=== PATIENT | female | born 1965 | race Caucasian/White ===

== ENCOUNTER 2018-11-29 18:43 | Inpatient (IN) | payer OTHER ==
[~2018-11-29] VITALS: Ht 160 cm; Wt 102.7 kg
--- NOTE | 2018-11-29 19:57 | NUR ---
PT PRESENTED TO THE ER WITH A C/O ABD PAIN. PT'S ABD IS HARD AND DISTENDED. PT WAS DX WITH A UTI A FEW DAYS AGO AT [facility], PER PT'S AUNT. PT WAS RECENTLY DX WITH LIVER CIROSIS.
[2018-11-29] MEDS ORDERED: ONDANSETRON HCL/PF 4 MG/2 ML VIAL ONE (20:28)
[2018-11-29] MEDS ORDERED: MORPHINE SULFATE INJ 4 MG/ML DISP.SYRIN ONE (20:28)
[2018-11-29] MEDS ORDERED: ONDANSETRON HCL/PF 4 MG/2 ML VIAL IVP ONE (20:30)
[2018-11-29] MEDS ORDERED: MORPHINE SULFATE INJ 2 MG/ML DISP.SYRIN IV ONE (20:30)
[2018-11-29] MEDS ORDERED: IV NS 0.9% 500 ML BAG IV ONE (20:30)
[2018-11-29 20:42] LABS: BASOPHILS % (AUTO) 0.5 % (0.0-2.0); EOSINOPHILS % (AUTO) 2.8 % (0.0-6.0); HEMATOCRIT 32 % (33-45); HEMOGLOBIN 9.9 g/dL (11.5-14.8); LYMPHOCYTES # (AUTO) 1.2 /CMM (0.8-4.8); LYMPHOCYTES % (AUTO) 17.7 % (20.0-44.0); MEAN CORPUSCULAR HGB CONC 31 g/dl (31.0-36.0); MEAN CORPUSCULAR VOLUME 80 fL (82-100); MONOCYTES # (AUTO) 0.8 /CMM (0.1-1.30); MONOCYTES % (AUTO) 12.9 % (2.0-12.0); NEUTROPHILS # (AUTO) 4.4 /CMM (1.8-8.9); NEUTROPHILS % (AUTO) 66.1 % (43.0-81.0); PLATELET COUNT (AUTO) 72 /CMM (150-450); RED BLOOD CELL COUNT(AUTO) 3.97 MIL/uL (4.0-5.2); WHITE BLOOD COUNT (AUTO) 6.6 K/uL (4.3-11.0)
[2018-11-29 20:50] LABS: CALCIUM, SERUM 8.3 mg/dL (8.5-10.1); CARBON DIOXIDE 28 mmol/L (21-32); CHLORIDE 103 mmol/L (98-107); CREATININE 1.2 mg/dL (0.6-1.3); GLUCOSE 96 mg/dL (74-106); POTASSIUM 3.1 mmol/L (3.5-5.1); SODIUM SERUM 137 mmol/L (136-145); UREA NITROGEN, BLOOD 9 mg/dL (7-18)
[2018-11-29 20:54] LABS: SERUM AMMONIA 23 umol/L (11-32)
[2018-11-29 20:56] LABS: ALANINE AMINOTRANSFERASE 41 U/L (12-78); ALBUMIN 2.4 g/dL (3.4-5.0); ALKALINE PHOSPHATASE 68 U/L (46-116); ASPARTATE AMINOTRANSFERASE 46 U/L (15-37); BILIRUBIN,DIRECT 0.7 mg/dL (0.0-0.2); BILIRUBIN,TOTAL 1.5 mg/dL (0.2-1.0); LIPASE 756 U/L (73-393); TOTAL PROTEIN, SERUM 7.2 g/dL (6.4-8.2)
[2018-11-29 21:45] LABS: APPEARANCE,URINE Slightly Cloudy (CLEAR); BILIRUBIN,URINE Negative (NEGATIVE); BLOOD, URINE Trace-lysed Ery/uL (NEGATIVE); COLOR,URINE Yellow (YELLOW); KETONES,URINE Negative (NEGATIVE); LEUKOCYTE ESTERASE ,URINE Negative (NEGATIVE); NITRITE, URINE Negative (NEGATIVE); PH,URINE 7.5 (5.0-8.0); PROTEIN,URINE Negative (NEGATIVE); UGLUCOSE Negative (NEGATIVE); UROBILINOGEN,URINE 0.2 EU/dL (0.2)
[2018-11-29 21:55] LABS: BACTERIA,URINE None seen /HPF (None Seen); SQUAMOUS EPITHELIAL CELL,UR Moderate /HPF (None Seen); WBC,URINE 0-2 /HPF (0-3)
--- NOTE | 2018-11-29 21:55 | NUR ---
PT STATED THAT SHE FELT BETTER.
--- NOTE | 2018-11-29 22:00 | NUR ---
PT LEFT FOR CT.
--- NOTE | 2018-11-29 22:03 | NUR ---
PT IS GOING TO 314-2
--- NOTE | 2018-11-29 22:03 | NUR ---
ADMIT TO 314-2 MED SURG PANCREATITIS ACCEPTING EZEQUIEL GUERRERO NP
[2018-11-29 22:13] LABS: EOSINOPHILS % (MANUAL) 3 % (0-4); LYMPHOCYTES % (MANUAL) 19 % (16-48); MONOCYTES % (MANUAL) 9 % (0-11.0); NEUTROPHILS % (MANUAL) 69 (42-76)
--- NOTE | 2018-11-29 22:44 | NUR ---
REPORT TO ORION MABRY
[2018-11-29 23:00] VITALS: BP 171/99
--- NOTE | 2018-11-29 23:00 | NUR ---
RN MS ADMISSION NOTE RECEIVED PT FROM ER VIA TAMI, PT AWAKE, ALERT ORIENTEDX4. BREATHING EVEN AND UNLABORED ON ROOM AIR. COMPLAINS OF SHARP ABDOMINAL PAIN 08/11. IV ACCESS ON THE R WRIST #24GWITH D5 NS@60ML/ML. SKIN INTACT. BED IN LOWEST LOCKED POSITION, CALL LIGHT WITHIN REACH AT ALL TIMES, WILL CONTINUE TO MONITOR.
[2018-11-29] MEDS ORDERED: Z GUARD REMEDY 2 OZ OINT TP PRN (23:30)
[2018-11-29] MEDS ORDERED: ZOLPIDEM TARTRATE 5 MG TABLET PO PRN (23:30)
[2018-11-29] MEDS ORDERED: IV D5/ 0.9% NACL 1,000 ML IV PRN (23:30)
[2018-11-29] MEDS ORDERED: ONDANSETRON HCL/PF 4 MG/2 ML VIAL IVP PRN (23:30)
[2018-11-29] MEDS ORDERED: MAGNESIUM HYDROXIDE 30 ML UDC PO PRN (23:30)
[2018-11-30] MEDS: HYDROMORPHONE 1 MG/1 ML DISP.SYRIN IV PRN ×2 (01:16→20:01)
[2018-11-30 03:04] VITALS: BP 171/99
[2018-11-30] MEDS ORDERED: FUROSEMIDE 40 MG/4 ML VIAL IV SCH (04:30)
[2018-11-30] MEDS ORDERED: Potassium Chloride 10 MEQ, LIDOCAINE HCL/PF 1% 1 ML in IV D5W 50 ML IV SCH (04:30)
[2018-11-30] MEDS: POTASSIUM CL. PREMIX PERIPHER. 50 ML IV SCH ×2 (05:52→06:34)
--- NOTE | 2018-11-30 06:37 | NUR ---
RN MS CLOSING NOTES PT REMAINS IN BED, AWAKE, ALERT ORIENTEDX4. BREATHING EVEN AND UNLABORED ON ROOM AIR. NO COMPLAINT OF PAIN OR DISCOMFORT AT THIS TIME. IV ACCESS ON THE R WRIST #24GWITH D5 NS@60ML/ML. SKIN INTACT. ALL NEEDS ATTENDED TO. BED IN LOWEST LOCKED POSITION, CALL LIGHT WITHIN REACH AT ALL TIMES, WILL ENDORSE TO DAY NURSE FOR BC.
[2018-11-30 06:55] LABS: BASOPHILS # (AUTO) 0.1 /CMM (0.0-0.2); BASOPHILS % (AUTO) 0.8 % (0.0-2.0); EOSINOPHILS % (AUTO) 4.6 % (0.0-6.0); HEMATOCRIT 33 % (33-45); HEMOGLOBIN 10.4 g/dL (11.5-14.8); LYMPHOCYTES # (AUTO) 1.4 /CMM (0.8-4.8); LYMPHOCYTES % (AUTO) 20.1 % (20.0-44.0); MEAN CORPUSCULAR HGB CONC 31 g/dl (31.0-36.0); MEAN CORPUSCULAR VOLUME 80 fL (82-100); MONOCYTES # (AUTO) 0.9 /CMM (0.1-1.30); MONOCYTES % (AUTO) 13.5 % (2.0-12.0); NEUTROPHILS # (AUTO) 4.1 /CMM (1.8-8.9); PLATELET COUNT (AUTO) 71 /CMM (150-450); WHITE BLOOD COUNT (AUTO) 6.7 K/uL (4.3-11.0)
[2018-11-30 07:02] LABS: CALCIUM, SERUM 7.7 mg/dL (8.5-10.1); CREATININE 1.2 mg/dL (0.6-1.3); MAGNESIUM 1.3 mg/dL (1.8-2.4); PHOSPHORUS 4.5 mg/dL (2.5-4.9)
[2018-11-30] MEDS ORDERED: LISI10TA59 PO (07:22)
--- NOTE | 2018-11-30 07:24 | NUR ---
MS/RN OPENING NOTE PATIENT IN BED IN STABLE CONDITION. A/O X 4. NO SIGNS OF ACUTE DISTRESS. NO COMPLAIN OF PAIN OR DISCOMFORT AT THIS TIME. ALL NEEDS ATTENDED TO. CALL LIGHT WITHIN REACH. WILL CONTINUE TO MONITOR TO ENSURE SAFETY.
[2018-11-30 08:00] VITALS: BP 159/96
[2018-11-30 08:01] LABS: EOSINOPHILS % (MANUAL) 1 % (0-4); LYMPHOCYTES % (MANUAL) 15 % (16-48); MONOCYTES % (MANUAL) 15 % (0-11.0); MYELOCYTES % 1 % (0-0); NEUTROPHILS % (MANUAL) 68 (42-76)
[2018-11-30] MEDS ORDERED: SPIRONOLACTONE 25 MG TABLET PO SCH (09:00)
[2018-11-30] MEDS: Magnesium 1GM/D5W 100ML PREMIX 100 ML IV SCH ×4 (09:27→13:06)
[2018-11-30] MEDS: ACETAMINOPHEN 325 MG TABLET PO PRN ×2 (09:47→15:17)
[2018-11-30] MEDS: FUROSEMIDE 20 MG/2 ML VIAL IV SCH ×2 (11:00→12:01)
--- NOTE | 2018-11-30 11:57 | NUR ---
MS/RN S/P US GUIDED PARACENTESIS TOLERATED WELL. 1250ML FLUID ASPIRATED.
[2018-11-30] MEDS: POTASSIUM CHLORIDE 20 MEQ TAB.PRT.SR PO SCH ×3 (15:17→17:35)
[2018-11-30 16:01] VITALS: BP 145/85
--- NOTE | 2018-11-30 18:45 | NUR ---
MS/RN CLOSING NOTE PATIENT IN BED IN STABLE CONDITION. A/O X 4. NO SIGNS OF ACUTE DISTRESS. NO COMPLAINS OF PAIN OR DISCOMFORT. ALL NEEDS ATTENDED TO. CALL LIGHT WITHIN REACH. WILL ENDORSE TO NEXT SHIFT FOR CONTINUITY OF CARE.
--- NOTE | 2018-11-30 19:35 | NUR ---
MS/RN NOTES RECEIVED PT. LYING IN BED. PT. IS AWAKE, ALERT AND ORIENTED X4. BREATHING EVEN AND UNLABORED ON ROOM AIR. NO SOB, RESPIRATORY DISTRESS OR COMPLAINTS OF PAIN NOTED AT THIS TIME. PT. WITH RIGHT WRIST 24 GAUGE PERIPHERAL IV PRESENT, PATENT AND INTACT ADMINISTERING TO PT. D5NS @ 50ML/HR. PT. WITH FAMILY MEMBER PRESENT AT BEDSIDE. BED LOCKED AND IN LOWEST POSITION, SIDE RAILS UP X2, CALL LIGHT WITHIN REACH, WILL CONTINUE TO MONITOR.
[2018-11-30 20:00] VITALS: BP 139/87
--- NOTE | 2018-12-01 06:16 | NUR ---
MS/RN NOTES PT. IS LYING IN BED RESTING. BREATHING EVEN AND UNLABORED ON ROOM AIR. NO SOB, RESPIRATORY DISTRESS OR COMPLAINTS OF PAIN NOTED AT THIS TIME. PT. WITH RIGHT WRIST 24 GAUGE PERIPHERAL IV PRESENT, PATENT AND INTACT ADMINISTERING TO PT. D5NS @ 50ML/HR. ALL PT. NEEDS MET. BED LOCKED AND IN LOWEST POSITION, SIDE RAILS UP X2, CALL LIGHT WITHIN REACH, WILL ENDORSE TO DAYSHIFT NURSE FOR CONTINUITY OF CARE.
[2018-12-01 07:05] LABS: BASOPHILS % (AUTO) 0.6 % (0.0-2.0); EOSINOPHILS % (AUTO) 5.9 % (0.0-6.0); HEMATOCRIT 31 % (33-45); HEMOGLOBIN 9.4 g/dL (11.5-14.8); LYMPHOCYTES # (AUTO) 0.7 /CMM (0.8-4.8); LYMPHOCYTES % (AUTO) 15.9 % (20.0-44.0); MEAN CORPUSCULAR HGB CONC 31 g/dl (31.0-36.0); MEAN CORPUSCULAR VOLUME 81 fL (82-100); MONOCYTES # (AUTO) 0.8 /CMM (0.1-1.30); MONOCYTES % (AUTO) 16.7 % (2.0-12.0); NEUTROPHILS # (AUTO) 2.8 /CMM (1.8-8.9); NEUTROPHILS % (AUTO) 60.9 % (43.0-81.0); PLATELET COUNT (AUTO) 76 /CMM (150-450); RED BLOOD CELL COUNT(AUTO) 3.78 MIL/uL (4.0-5.2); WHITE BLOOD COUNT (AUTO) 4.6 K/uL (4.3-11.0)
[2018-12-01] MEDS: HYDROMORPHONE 1 MG/1 ML DISP.SYRIN IV PRN ×3 (07:07→19:59)
[2018-12-01 07:28] LABS: CALCIUM, SERUM 7.7 mg/dL (8.5-10.1); CREATININE 1.2 mg/dL (0.6-1.3); MAGNESIUM 1.9 mg/dL (1.8-2.4); PHOSPHORUS 3.3 mg/dL (2.5-4.9); POTASSIUM 3.6 mmol/L (3.5-5.1)
[2018-12-01 08:00] VITALS: BP 142/77
[2018-12-01] MEDS: FUROSEMIDE 20 MG/2 ML VIAL IV SCH (08:48)
[2018-12-01] MEDS: SPIRONOLACTONE 25 MG TABLET PO SCH (08:49)
[2018-12-01 09:08] LABS: EOSINOPHILS % (MANUAL) 2 % (0-4); LYMPHOCYTES % (MANUAL) 10 % (16-48); MONOCYTES % (MANUAL) 10 % (0-11.0); NEUTROPHILS % (MANUAL) 78 (42-76)
[2018-12-01 16:00] VITALS: BP 142/79
--- NOTE | 2018-12-01 19:09 | NUR ---
PT IN BED , NO DISTRESS NOTED , IV LINE INTACT AND PATENT. SEEN BY . POSSIBLE D/C TO HOME 12/02/18. WILL ENDORSE TO NEXT SHIFT FOR BC.
--- NOTE | 2018-12-01 19:30 | NUR ---
MS RN NOTE RECEIVED PT IN STABLE CONDITION A&O X4 ABLE TO MAKE NEEDS KNOW. PT CURRENTLY RESTING IN BED. NO SIGNS OF SOB OR DISTRESS. SAFETY PRECAUTIONS IN PLACE: BED LOW, LOCKED, UPPER RAILS UP X2 AND CALL LIGHT WITHIN REACH. WILL CONT TO MONITOR.
[2018-12-01 20:00] VITALS: BP 182/92
--- NOTE | 2018-12-01 20:00 | NUR ---
MS RN NOTE PRN DILAUDID GIVEN TO PT FOR NECK PAIN 06/11. WILL CONT. TO MONITOR.
--- NOTE | 2018-12-01 20:00 | NUR ---
MS RN NOTE PRN DILAUDID 1MG GIVEN FOR PAIN 8/10 IN NECK. WILL CONT TO MONITOR.
[2018-12-02 00:02] VITALS: BP 172/95
[2018-12-02] MEDS: HYDROMORPHONE 1 MG/1 ML DISP.SYRIN IV PRN (01:00)
--- NOTE | 2018-12-02 01:00 | NUR ---
MS RN NOTE PRN DILAUDID 1 MG GIVEN FOR PAIN IN NECK 06/11. WILL CONT. TO MONITOR.
[2018-12-02] MEDS: ACETAMINOPHEN 325 MG TABLET PO PRN (05:37)
--- NOTE | 2018-12-02 05:37 | NUR ---
MS RN NOTE PRN TYLENOL 650 MG GIVEN FOR HEADACHE 01/09. WILL CONT. TO MONITOR.
[2018-12-02 06:01] VITALS: BP 166/96
--- NOTE | 2018-12-02 06:21 | NUR ---
MS RN NOTE PT IN STABLE CONDITION A&O X4 ABLE TO MAKE NEEDS KNOWN. PT CURRENTLY RESTING IN BED. NO SIGNS OF SOB OR DISTRESS. PAIN MANAGED THROUGHOUT SHIFT ORDERED BY MD. SAFETY PRECAUTIONS IN PLACE: BED LOW, LOCKED, UPPER RAILS UP X2 AND CALL LIGHT WITHIN REACH. WILL CONT TO MONITOR AND ENDORSE TO NEXT SHIFT FOR CONT OF CARE.
[2018-12-02 07:03] LABS: BASOPHILS % (AUTO) 0.6 % (0.0-2.0); EOSINOPHILS % (AUTO) 5.5 % (0.0-6.0); HEMATOCRIT 31 % (33-45); HEMOGLOBIN 9.8 g/dL (11.5-14.8); LYMPHOCYTES # (AUTO) 0.9 /CMM (0.8-4.8); MEAN CORPUSCULAR HGB CONC 31 g/dl (31.0-36.0); MEAN CORPUSCULAR VOLUME 81 fL (82-100); MONOCYTES # (AUTO) 0.6 /CMM (0.1-1.30); MONOCYTES % (AUTO) 15.1 % (2.0-12.0); NEUTROPHILS # (AUTO) 2.4 /CMM (1.8-8.9); NEUTROPHILS % (AUTO) 56.8 % (43.0-81.0); PLATELET COUNT (AUTO) 104 /CMM (150-450); RED BLOOD CELL COUNT(AUTO) 3.89 MIL/uL (4.0-5.2); WHITE BLOOD COUNT (AUTO) 4.3 K/uL (4.3-11.0)
[2018-12-02 07:21] LABS: CALCIUM, SERUM 7.8 mg/dL (8.5-10.1); CREATININE 1.1 mg/dL (0.6-1.3); MAGNESIUM 1.6 mg/dL (1.8-2.4); PHOSPHORUS 3.7 mg/dL (2.5-4.9); POTASSIUM 3.6 mmol/L (3.5-5.1)
[2018-12-02 08:00] VITALS: BP 167/95
[2018-12-02] MEDS: FUROSEMIDE 20 MG/2 ML VIAL IV SCH (09:00)
[2018-12-02] MEDS: SPIRONOLACTONE 25 MG TABLET PO SCH (09:06)
[2018-12-02] MEDS: Magnesium 1GM/D5W 100ML PREMIX 100 ML IV SCH ×2 (11:01→12:03)
[2018-12-02] MEDS ORDERED: SPIR25TA PO (11:31)
[2018-12-02] MEDS ORDERED: PANT40TA2 PO (11:31)
[2018-12-02 16:55] VITALS: BP 156/91
--- NOTE | 2018-12-02 17:30 | NUR ---
DISCHARGE NOTES PT. WAS DISCHARGED IN STABLE CONDITION, PT. LEFT WITH HER AUNT. DISCHARGE INSTRUCTIONS WITH EDUCATION WAS PROVIDED AND PT. VERBALIZED UNDERSTANDING. BELONGINGS WERE CHECKED AND SIGNED. DISCHARGE PACKET WAS SIGNED AND PRESCRIPTION WAS GIVEN. ID BAND, AND IV WAS REMOVED. ALL QUESTIONS ANSWERED. PT. LEFT BY PRIVATE CAR.
== END 2018-12-02 17:30 | disposition home or self-care (01) | DRG 432 ==
LOC: ER 18:43 → MED 22:16
PROVIDERS: ADMIT Nurse Practitioner Acute Care; ATTEND Internal Medicine
PROC: 0W9G3ZZ Drainage of Peritoneal Cavity, Percutaneous Approach (ICD-10-PCS; principal; 2018-11-30)
DX: K70.31 Alcoholic cirrhosis of liver with ascites (principal); K85.20 Alcohol induced acute pancreatitis without necrosis or infection; I85.00 Esophageal varices without bleeding; E44.1 Mild protein-calorie malnutrition; Z68.41 Body mass index [BMI] 40.0-44.9, adult; K76.6 Portal hypertension; D63.8 Anemia in other chronic diseases classified elsewhere; I11.0 Hypertensive heart disease with heart failure; I16.0 Hypertensive urgency; D69.6 Thrombocytopenia, unspecified; E83.42 Hypomagnesemia; E87.6 Hypokalemia; D50.9 Iron deficiency anemia, unspecified; R16.1 Splenomegaly, not elsewhere classified; R74.0 Nonspecific elevation of levels of transaminase and lactic acid dehydrogenase [LDH]; E88.09 Other disorders of plasma-protein metabolism, not elsewhere classified; I50.9 Heart failure, unspecified; F10.21 Alcohol dependence, in remission
CPT/HCPCS: 36415; 71045-TC; 76942-TC; 80048-TC; 80061-TC; 80076-TC; 81000-TC; 82140-TC; 83540-TC; 83690-TC; 83735-TC; 84100-TC; 84484-TC; 85025-TC; 85730-TC; 87081-TC; 93307-TC; G0378; J1170; J1940; J2270; J2405; J3475; J3480; J3490; J7030; J7042; J7060